=== PATIENT | male | born 1970 | race Two or more races ===

== ENCOUNTER 2019-04-24 12:22 | Emergency (ER) | payer MEDICARE, MEDICAID ==
[2019-04-24 13:05] LABS: Basophils # (auto) 0.1 uL; Basophils % (auto) 0.7 % (0.0-2.0); Eosinophils # (auto) 0.4 uL; Eosinophils % (auto) 2.9 % (0.0-7.0); Hematocrit 33.5 % (41.0-53.0); Hemoglobin 11.1 g/dL (13.5-17.5); Lymphocytes # (auto) 3.6 uL; Lymphocytes % (auto) 25.7 % (10.0-50.0); Mean Corpuscular Hemoglobin 28.9 pg (28.0-32.0); Mean Corpuscular Volume 87.7 fL (80.0-100.0); Monocytes # (auto) 0.6 uL; Monocytes % (auto) 4.4 % (0.0-12.0); Neutrophils # (auto) 9.3 uL; Neutrophils % (auto) 66.3 % (37.0-80.0); Nucleated Red Blood Cells % 0.1 %; Platelet Count (auto) 342 10^3/uL (140-450); Red Blood Cells 3.82 10^6/uL (4.5-5.90); Red Cell Distribution Width 14.3 % (11.8-14.3); White Blood Cell 14.1 10^3/uL (4.4-10.8)
[2019-04-24 13:18] LABS: Albumin 3.3 g/dL (3.4-5.0); Potassium 5.1 mmol/L (3.5-5.1)
[2019-04-24 13:21] LABS: BUN/Creatinine Ratio 19.3; Bilirubin, Total 0.2 mg/dL (0.2-1.0); Total Protein 8.4 g/dL (6.4-8.2)
[2019-04-24] MEDS: SODIUM CHLORIDE 0.9% 1,000 ML IV ONE (21:02)
[2019-04-24] MEDS: CLINDAMYCIN 600MG IV 50 ML IV ONE (21:03)
[2019-04-25] MEDS ORDERED: LORazepam 0.5 MG TAB PO ONE
[2019-04-25 00:45] VITALS: BP 150/72
== END 2019-04-25 01:24 | disposition home or self-care (01) ==
LOC: ER 12:22
DX: M86.18 Other acute osteomyelitis, other site (principal); E11.65 Type 2 diabetes mellitus with hyperglycemia; F17.210 Nicotine dependence, cigarettes, uncomplicated
CPT/HCPCS: 36415; 72192; 73700; 80053; 82962; 85025; 96365; 96366; 99284; J3490; J7030